=== PATIENT | male | born 1965 | race Caucasian/White ===

== ENCOUNTER 2020-10-08 09:43 | Day surgery (SDC) | payer BC ==
[~2020-10-08] VITALS: Ht 182.9 cm; Wt 99.8 kg
--- NOTE | ~2020-10-08 | OP ---
PATIENT NAME: YASMIN MURRAY MEDICAL RECORD: [id number] :67 LOCATION:D.OPS ADMISSION DATE: SURGEON: DIDIER FERNANDO DATE OF OPERATION: 10/08/2020 SURGEON: Didier Fernando DPM PREOPERATIVE DIAGNOSIS: Neuroma, third intermetatarsal space, left foot. POSTOPERATIVE DIAGNOSIS: Neuroma, third intermetatarsal space, left foot. PROCEDURE: Excision of neuroma, left foot. ANESTHESIA: Local with monitored anesthesia care. HEMOSTASIS: Pneumatic ankle tourniquet inflated to 250 mmHg. ESTIMATED BLOOD LOSS: Minimal. MATERIALS: A 3-0 Vicryl, 4-0 nylon. INJECTABLES: 12 cc of a 50:50 mix of 0.5% Marcaine with epinephrine and 1% lidocaine plain. The patient has a longstanding history of pain associated with a neuroma on the left foot, he has not responded to conservative care. He is here today for surgical excision. We again reviewed the risks and benefits of the procedure, complications were discussed. Risks and benefits were reviewed. All questions were answered. He was appropriately consented for the above-mentioned procedure. The patient was brought into the operating room and placed on the operating table in a supine position. A timeout was called by Dr. Fernando to identify the patient, the surgical site, and the surgery to be performed. Once appropriate anesthesia was obtained, the foot was prepped and draped in the usual aseptic manner. Attention was directed to the dorsal aspect of the left foot where a 3-cm linear incision was made directly over the third intermetatarsal space. This incision was carried deep through soft tissue with care being taken to retract all vital neurovascular structures. All bleeders were cauterized along the way. The deep transverse intermetatarsal ligament was then identified and sharply transected. The neuroma was then identified at this layer. Next, the digital branches were tracked into the lateral side of the third toe and medial side of the fourth toe. The nerve was then dissected proximally into the third intermetatarsal space. Next, utilizing a fresh 15 blade, the proximal aspect of the nerve was sharply transected. Attention was then directed further distally and each digital branch was then sharply transected. The neuroma was passed from the field and sent to pathology. The surgical site was then investigated for any remaining pathological tissue and none was noted. The surgical site was then irrigated with copious amounts of normal sterile saline via bulb syringe. The subQ was then reapproximated and coapted using 3-0 Vicryl. The skin was then reapproximated and coapted using 4-0 nylon. A dressing consisting of Xeroform, 4 x 4's, Kerlix, and Fortino bandage was applied to the left foot. OPERATIVE REPORT [id number] YASMIN MURRAY The patient tolerated the procedure and anesthesia well. He left the operating room with vital signs stable and capillary fill time intact. The patient will be discharged home with instructions to ice and elevate the left foot. He was dispensed a boot to help offload the foot. He was provided with my cell phone number for any afterhours difficulties. He was also provided with a prescription for [place] 5/325, #20, one tab p.o. 4-6h. p.r.n. pain and ibuprofen 800 mg, #30, one tab p.o. at bedtime p.c. There were no complications with this procedure. We will follow up with him in 1 week. 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
[~2020-10-08 09:43] MED LIST: DICLOFENAC SODI50 MG PO; FENOFIBRATE160 MG PO
[2020-10-08 11:32] VITALS: BP 159/78; Ht 182.9 cm; Wt 99.8 kg
--- NOTE | 2020-10-08 19:58 | NUR ---
1420 IV REMOVED AND PRESSURE HELD. INSTRUCTIONS GIVEN.
== END 2020-10-08 14:45 | disposition home or self-care (01) ==
LOC: D.OPS 09:43
PROVIDERS: ATTEND Podiatrist
DX: G57.82 Other specified mononeuropathies of left lower limb (principal)